=== PATIENT | male | born 1980 | race African-American/Black ===

== ENCOUNTER 2024-03-09 12:28 | Emergency (ER) | payer OTHER ==
[~2024-03-09] VITALS: Ht 180.3 cm; Wt 95.0 kg
[2024-03-09 12:45] VITALS: O2SAT 100
[2024-03-09] MEDS: ACETAMINOPHEN 325MG TABLET PO ONE (14:45)
[2024-03-09] MEDS: KETOROLAC 30MG/ML VIAL IM ONE (14:45)
[2024-03-09] MEDS ORDERED: CYCL5TAB3 MT (16:29)
[2024-03-09] MEDS ORDERED: NAPR-679 MT (16:29)
[2024-03-09 17:45] VITALS: BP 131/87; PULSE 80; RESP 17; TEMP 36.72516; O2SAT 100
== END 2024-03-09 17:50 | disposition home or self-care (01) ==
LOC: ER 12:28
DX: S39.012A Strain of muscle, fascia and tendon of lower back, initial encounter (principal); Z79.1 Long term (current) use of non-steroidal anti-inflammatories (NSAID); W10.9XXA Fall (on) (from) unspecified stairs and steps, initial encounter; Y93.89 Activity, other specified; Y92.89 Other specified places as the place of occurrence of the external cause; Y99.8 Other external cause status
CPT/HCPCS: 99283; 72100; 96372; J1885